=== PATIENT | male | born 1980 | race Caucasian/White ===

== ENCOUNTER 2019-10-27 07:04 | Day surgery (SDC) | payer OTHER ==
[~2019-10-27 07:04] MED LIST: Lactated Ringers 1,000 ML IV SCH; Lidocaine 1%/Sod Bicarbonate in NS 8.4% 1 ML Syringe IDERM PRN; Sodium Chloride 0.9% 10 ML Syringe FLUSH PRN
[2019-10-27] MEDS ORDERED: ceFAZolin 1 GM Vial ONE (07:40)
[2019-10-27] MEDS ORDERED: Ondansetron 4 MG/2 ML SDV ONE (07:40)
[2019-10-27] MEDS ORDERED: Rocuronium 50 MG/5 ML Vial ONE (07:40)
[2019-10-27] MEDS ORDERED: Propofol 200 MG/20 ML SDV ONE (07:40)
[2019-10-27] MEDS ORDERED: Lidocaine 1% 4 ML ONE (07:40)
[2019-10-27] MEDS ORDERED: Lactated Ringers 1,000 ML ONE (07:40)
[2019-10-27] MEDS ORDERED: fentaNYL 250 MCG/5 ML SDV ONE (07:40)
[2019-10-27] MEDS ORDERED: Ketorolac 30 MG/ML SDV ONE (07:41)
[2019-10-27] MEDS ORDERED: Dexamethasone 4 MG/ML 5 ML MDV ONE (07:41)
[2019-10-27] MEDS ORDERED: Succinylcholine/Sod PF 100 MG/5 ML SYRINGE IV ONE (07:47)
--- NOTE | 2019-10-27 08:06 | PCM.PREANE ---
Preanesthetic Assessment - Lab Values: Laboratory Last Values SARS Virus RNA (PCR) Negative (NEGATIVE) 10/25/19 13:27 MRSA (PCR) Negative 10/25/19 13:34 - Allergies Allergies/Adverse Reactions: Allergies Allergy/AdvReac Type Severity Reaction Status Date / Time No Known Allergies Allergy Verified 10/26/19 15:32 PreAnesthesia Questionnaire HEENT History: Reports: None Cardiovascular History: Reports: High Cholesterol Respiratory History: Reports: Sleep Apnea Gastrointestinal History: Reports: None Genitourinary History: Reports: Renal Calculus, STD [employer] History: Reports: None Musculoskeletal History: Reports: None Neurological History: Reports: None Psychiatric History: Reports: None Endocrine/Metabolic History: Reports: None Hematologic History: Reports: None Immunologic History: Reports: None Oncologic (Cancer) History: Reports: None Dermatologic History: Reports: None - Past Surgical History Head Surgeries/Procedures: Reports: None HEENT Surgical History: Reports: None Cardiovascular Surgical History: Reports: None Respiratory Surgical History: Reports: None GI Surgical History: Reports: Hernia, Inguinal Female Surgical History: Reports: None Male Surgical History: Reports: None Endocrine Surgical History: Reports: None Neurological Surgical History: Reports: None Musculoskeletal Surgical History: Reports: Shoulder Surgery Oncologic Surgical History: Reports: None Dermatological Surgical History: Reports: None - SUBSTANCE USE Smoking Status *Q: Current Every Day Smoker Recreational Drug Use History: No - HOME MEDS Home Medications: Home Meds . [No Known Home Meds] 10/26/19 [History] - CURRENT (IN HOUSE) MEDS Current Meds: Current Medications Lactated Ringer's (Ringers, Lactated) 1,000 mls @ 125 mls/hr IV ASDIRECTED PHILIP Stop: 10/27/19 23:00 Lidocaine/Sodium Bicarbonate (Buffered Lidocaine 1% In Ns 8.4%) 0.25 ml IDERM ONETIME PRN PRN Reason: Prior to IV Start Stop: 10/27/19 23:00 Sodium Chloride (Saline Flush) 10 ml FLUSH ASDIRECTED PRN PRN Reason: Keep Vein Open Stop: 10/27/19 23:00 Discontinued Medications Bupivacaine HCl/Epinephrine Bitart (Marcaine 0.5%/Epinephrine 1:200,000) Confirm Administered Dose 50 ml .ROUTE .STK-MED ONE Stop: 10/27/19 07:28 Cefazolin Sodium (Ancef) Confirm Administered Dose 2 gm .ROUTE .STK-MED ONE Stop: 10/27/19 07:41 Dexamethasone (Dexamethasone) Confirm Administered Dose 20 mg .ROUTE .STK-MED ONE Stop: 10/27/19 07:42 Fentanyl (Sublimaze) Confirm Administered Dose 250 mcg .ROUTE .STK-MED ONE Stop: 10/27/19 07:41 Lidocaine HCl (Xylocaine-Mpf 1%) Confirm Administered Dose 4 mls @ as directed .ROUTE .STK-MED ONE Stop: 10/27/19 07:41 Lactated Ringer's (Ringers, Lactated) Confirm Administered Dose 1,000 mls @ as directed .ROUTE .STK-MED ONE Stop: 10/27/19 07:41 Ketorolac Tromethamine (Toradol) Confirm Administered Dose 30 mg .ROUTE .STK- MED ONE Stop: 10/27/19 07:42 Ondansetron HCl (Zofran) Confirm Administered Dose 4 mg .ROUTE .STK-MED ONE Stop: 10/27/19 07:41 Propofol (Diprivan 20 Ml) Confirm Administered Dose 400 mg .ROUTE .STK-MED ONE Stop: 10/27/19 07:41 Rocuronium [place] (Zemuron) Confirm Administered Dose 50 mg .ROUTE .STK-MED ONE Stop: 10/27/19 07:41
[2019-10-27] MEDS: Bupivacaine 0.5%/EPINEPHrine 1:200,000 50 ML MDV ONE ×2 (08:28→08:42)
[2019-10-27] MEDS ORDERED: Ondansetron 4 MG/2 ML SDV IVPUSH PRN (08:33)
[2019-10-27] MEDS ORDERED: fentaNYL 100 MCG/2 ML SDV IVPUSH PRN (08:33)
[2019-10-27] MEDS ORDERED: HYDROmorphone 0.5 MG/0.5 ML Syringe IVPUSH PRN (08:33)
[2019-10-27] MEDS ORDERED: Sodium Chloride 0.9% 10 ML Syringe FLUSH PRN (08:33)
[2019-10-27] MEDS ORDERED: Lidocaine 1%/Sod Bicarbonate in NS 8.4% 1 ML Syringe IDERM PRN ×2 (08:33→08:35)
[2019-10-27] MEDS ORDERED: Lactated Ringers 1,000 ML IV SCH (08:45)
--- NOTE | 2019-10-27 10:14 | PCM.PRNOTE ---
- Free Text/Narrative Note: Date: 10/27/2019 Operation: open left inguinal hernia repair with permanent mesh placement Surgeon: Obdulio Olivera MD Operative findings:moderate size fat-containing indirect left inguinal hernia. Detailed Report: The patient was taken to the operating room and placed supine on the table. Time out was performed and general endotracheal anesthesia initiated. The abdomen and groin region were prepped and draped in sterile fashion. A total of 20 cc 0.5% marcaine with epinephrine was injected intradermally and in the subcutaneous space overlying the inguinal canal. A linear incision measuring 7 cm in length was made along the projection of the inguinal ligament, between the anterior superior iliac spine and the pubic tubercle. Dissection was carried down to the external oblique aponeurosis. An additional 10 cc of local anesthetic was injected just deep to the fibers, into the inguinal canal. A stab incision with the 15 blade scalpel through the aponeurosis, and Metzenbaum scissors were passed deep to the fibers and used to bluntly separate the underlying spermatic cord. Scissors were then used to sharply divide the roof of the inguinal canal, and clamps were placed on the fascia. Self-retaining retractors were placed to aid with optimal exposure, with the spermatic cord in view. The ilioinguinal nerve was identified and preserved. A large right angle clamp was passed deep to the cord at the level of the pubic tubercle, and a inch bety drain was placed, encircling the cord structures and hernia sac. Blunt dissection was used to split the cremasteric fibers anchoring the cord to the floor of the canal. The hernia sac was then carefully from the cord, working distal to proximal. The sac was clamped and suture ligated with silk at the level of the internal inguinal ring. The hernia sac and its fatty contents were sent for pathology. Next, a piece of Progrip permanent lightweight mesh was cut to size and placed to reconstruct the floor of the inguinal canal. An anchoring prolene stitch was placed at the inferomedial aspect at the insertion of the rectus muscle to the pubic bone. Good medial and inferior overlap, 2 cm, at the tubercle was ensured. The lateral aspect of the mesh was then sewn to the shelving edge of the inguinal ligament with running prolene suture. The mesh was cut to permit passage of the cord, and the internal ring was recreated by laying the mesh leaflets over one anotherWith the mesh laying nice and flat, the leaflets of the external oblique aponeurosis were closed using interrupted vicryl suture. Benson fascia was closed in identical fashion, and the skin was closed with an absorbable running subcuticular stitch and dressed with dermabond. Obdulio Olivera MD General Surgery
--- NOTE | 2019-10-27 10:52 | PCM48HPAN ---
Post Anesthesia Note - EVALUATION WITHIN 48HRS OF ANESTHETIC Vital Signs in Normal Range: Yes Patient Participated in Evaluation: No Respiratory Function Stable: Yes Airway Patent: Yes Cardiovascular Function Stable: Yes Hydration Status Stable: Yes Pain Control Satisfactory: Yes Nausea and Vomiting Control Satisfactory: Yes Mental Status Recovered: Yes Vital Signs: Last Vital Signs Temp 37.1 C 10/27/19 10:30 Pulse 104 H 10/27/19 10:30 Resp 19 10/27/19 10:30 BP 128/91 H 10/27/19 10:30 Pulse Ox 93 L 10/27/19 10:30 - COMMENTS/OBSERVATIONS Free Text/Narrative:: Routine recovery. No concerns at this time.
--- NOTE | 2019-10-27 10:53 | PCM.POSTAN ---
POST ANESTHESIA ASSESSMENT - MENTAL STATUS Mental Status: Alert, Oriented - VITAL SIGNS Vital Signs: Last Vital Signs Temp 36.8 C 10/27/19 10:45 Pulse 94 10/27/19 10:45 Resp 18 10/27/19 10:45 BP 122/69 10/27/19 10:45 Pulse Ox 97 10/27/19 10:45 - RESPIRATORY Respiratory Status: Respiratory Rate WNL, Airway Patent, O2 Saturation Stable - CARDIOVASCULAR CV Status: Pulse Rate WNL, Blood Pressure Stable - GASTROINTESTINAL GI Status: No Symptoms - PAIN Pain Score: 0 - POST OP HYDRATION Hydration Status: Adequate & Stable (No concerns at this time)
== END 2019-10-27 11:40 | disposition home or self-care (01) ==
LOC: JD.SDS 07:04
PROVIDERS: ATTEND Surgery
DX: K40.90 Unilateral inguinal hernia, without obstruction or gangrene, not specified as recurrent (principal); E78.00 Pure hypercholesterolemia, unspecified; F17.210 Nicotine dependence, cigarettes, uncomplicated; Z11.59 Encounter for screening for other viral diseases
CPT/HCPCS: 49505; 87635; 87641; 88302; C1781; J0330; J0690; J1100; J1885; J2001; J2405; J2704; J3010; J3490; J7120; 00830; U0002